=== PATIENT | female | born 1995 | race Two or more races ===

== ENCOUNTER 2020-02-02 14:26 | Emergency (ER) | payer MEDICAID ==
--- NOTE | 2020-02-02 15:25 | EDM.PDOC ---
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 Patient is 12 weeks . She states the vaginal discharge was initially pink in color and increased in amount turning to a red color. The bleeding has since decreased and is currently a light pink in color. She does continue to have mild suprapubic cramping. Patient states she had a similar occurrence around 9 weeks of but then the bleeding resolved. She had a 10week OB [employer]INO CHANGE ATTENDANT appointment with early ultrasound done in [place]. Everything was found to be normal at that time. Patient is a with a history of 1 elective . She has no chronic health problems. She takes no daily medications. She is on a daily vitamin. Denies any nausea, vomiting, or diarrhea. She has had no dysuria, frequency, or urgency. First day of last menstrual period was November [id number]. Suprapubic Pain Score (Numeric/FACES): 8 - Related Data Allergies Allergy/AdvReac Type Severity Reaction Status Date / Time No Known Allergies Allergy Verified 02/02/20 14:41 Home Meds: Home Meds . [No Known Home Meds] 02/02/20 [History] Past Medical History - Past Health History Medical/Surgical History: Denies Medical/Surgical History ED ROS GENERAL - Review of Systems Review Of Systems: Comprehensive ROS is negative, except as noted in HPI. ED EXAM - Physical Exam Exam: See Below Exam Limited By: No Limitations General Appearance: Alert, WD/WN, No Apparent Distress Respiratory/Chest: No Respiratory Distress, Lungs Clear, Normal Breath Sounds, No Accessory Muscle Use, Chest Non-Tender Cardiovascular: Normal Peripheral Pulses, Regular Rate, Rhythm, No Edema, No Gallop, No JVD, No Murmur, No Rub GI/Abdominal Exam: Normal Bowel Sounds, Soft, No Organomegaly, No Distention, No Abnormal Bruit, No Mass, Pelvis Stable, Tender (Suprapubic) (Female) Exam: Normal External Exam, Normal Speculum Exam, Vaginal Discharge (thick white. No blood noted to the cervix of vaginal canal.). No: Cervical Dilatation, Cervical Discharge, Cervical Lesions, Products of Conception, Tissue Present in Cervix/Vagina, Vaginal Bleeding, Vaginal Lesions Heart Tones: Present Heart Tones per Min: 161 Neurological: Alert, Oriented, CN II-XII Intact, Normal Cognition, Normal Gait, Normal Reflexes, No Motor/Sensory Deficits Psychiatric: Normal Affect, Normal Mood Skin Exam: Warm, Dry, Intact, Normal Color, No Rash Course - Vital Signs Last Recorded V/S: Last Vital Signs Temp 98.0 F 02/02/20 14:37 Pulse 82 02/02/20 14:37 Resp 18 02/02/20 14:37 BP 135/93 H 02/02/20 14:37 Pulse Ox 99 02/02/20 14:37 - Orders/Labs/Meds Orders: Active Orders 24 hr Category Date Time Status Pelvic Exam, Set Up [RC] ASDIRECTED Care 02/02/20 16:48 Active PATIENT RETYPE [BBK] Routine Lab 02/02/20 16:26 Ordered Labs: Laboratory Tests 02/02/20 02/02/20 02/02/20 Range/Units 15:40 15:40 15:40 WBC 9.04 (3.98-10.04) K/mm3 RBC 4.58 (3.98-5.22) M/mm3 Hgb 14.1 (11.2-15.7) gm/dl Hct 40.7 (34.1-44.9) % MCV 88.9 (79.4-94.8) fl MCH 30.8 (25.6-32.2) pg MCHC 34.6 (32.2-35.5) g/dl RDW Std Deviation 40.8 (36.4-46.3) fL Plt Count 184 (182-369) K/mm3 MPV 11.3 (9.4-12.3) fl Neut % (Auto) 71.6 H (34.0-71.1) % Lymph % (Auto) 21.1 (19.3-51.7) % [place] % (Auto) 6.4 (4.7-12.5) % Eos % (Auto) 0.4 L (0.7-5.8) Baso % (Auto) 0.2 (0.1-1.2) % Neut # (Auto) 6.46 H (1.56-6.13) K/mm3 Lymph # (Auto) 1.91 (1.18-3.74) K/mm3 [place] # (Auto) 0.58 H (0.24-0.36) K/mm3 Eos # (Auto) 0.04 (0.04-0.36) K/mm3 Baso # (Auto) 0.02 (0.01-0.08) K/mm3 Sodium 138 (136-145) mEq/L Potassium 3.7 (3.5-5.1) mEq/L Chloride 105 (98-107) mEq/L Carbon Dioxide 22 (21-32) mEq/L Anion Gap 14.7 (5-15) BUN 5 L (7-18) mg/dL Creatinine 0.6 (0.55-1.02) mg/dL Est Cr Clr Drug Dosing 127.00 mL/min Estimated GFR (MDRD) > 60 (>60) mL/min BUN/Creatinine Ratio 8.3 L (14-18) Glucose 80 (74-106) mg/dL Calcium 9.2 (8.5-10.1) mg/dL Total Bilirubin 0.4 (0.2-1.0) mg/dL AST 13 L (15-37) U/L ALT 19 (14-59) U/L Alkaline Phosphatase 51 (46-116) U/L Total Protein 7.5 (6.4-8.2) g/dl Albumin 3.7 (3.4-5.0) g/dl Globulin 3.8 gm/dL Albumin/Globulin Ratio 1.0 (1-2) HCG, Quant 01620.0 mIU/mL Urine Color (Yellow) Urine Appearance (Clear) Urine pH (5.0-8.0) Ur Specific [place] (1.005-1.030) Urine Protein (Negative) Urine Glucose (UA) (Negative) Urine Ketones (Negative) Urine Occult Blood (Negative) Urine Nitrite (Negative) Urine Bilirubin (Negative) Urine Urobilinogen (0.2-1.0) Ur Leukocyte Esterase (Negative) Urine RBC (0-5) /hpf Urine WBC (0-5) /hpf Ur Squamous Epith Cells (0-5) /hpf Urine Bacteria (FEW) /hpf Urine Mucus (FEW) /hpf Blood Type O POSITIVE 02/02/20 Range/Units 16:07 WBC (3.98-10.04) K/mm3 RBC (3.98-5.22) M/mm3 Hgb (11.2-15.7) gm/dl Hct (34.1-44.9) % MCV (79.4-94.8) fl MCH (25.6-32.2) pg MCHC (32.2-35.5) g/dl RDW Std Deviation (36.4-46.3) fL Plt Count (182-369) K/mm3 MPV (9.4-12.3) fl Neut % (Auto) (34.0-71.1) % Lymph % (Auto) (19.3-51.7) % [place] % (Auto) (4.7-12.5) % Eos % (Auto) (0.7-5.8) Baso % (Auto) (0.1-1.2) % Neut # (Auto) (1.56-6.13) K/mm3 Lymph # (Auto) (1.18-3.74) K/mm3 [place] # (Auto) (0.24-0.36) K/mm3 Eos # (Auto) (0.04-0.36) K/mm3 Baso # (Auto) (0.01-0.08) K/mm3 Sodium (136-145) mEq/L Potassium (3.5-5.1) mEq/L Chloride (98-107) mEq/L Carbon Dioxide (21-32) mEq/L Anion Gap (5-15) BUN (7-18) mg/dL Creatinine (0.55-1.02) mg/dL Est Cr Clr Drug Dosing mL/min Estimated GFR (MDRD) (>60) mL/min BUN/Creatinine Ratio (14-18) Glucose (74-106) mg/dL Calcium (8.5-10.1) mg/dL Total Bilirubin (0.2-1.0) mg/dL AST (15-37) U/L ALT (14-59) U/L Alkaline Phosphatase (46-116) U/L Total Protein (6.4-8.2) g/dl Albumin (3.4-5.0) g/dl Globulin gm/dL Albumin/Globulin Ratio (1-2) HCG, Quant mIU/mL Urine Color Yellow (Yellow) Urine Appearance Clear (Clear) Urine pH 6.0 (5.0-8.0) Ur Specific [place] 1.025 (1.005-1.030) Urine Protein Negative (Negative) Urine Glucose (UA) Negative (Negative) Urine Ketones 3+ H (Negative) Urine Occult Blood Negative (Negative) Urine Nitrite Negative (Negative) Urine Bilirubin Negative (Negative) Urine Urobilinogen 1.0 (0.2-1.0) Ur Leukocyte Esterase Negative (Negative) Urine RBC 0-5 (0-5) /hpf Urine WBC 0-5 (0-5) /hpf Ur Squamous Epith Cells 0-5 (0-5) /hpf Urine Bacteria Occasional (FEW) /hpf Urine Mucus Not seen (FEW) /hpf Blood Type - Re-Assessments/Exams Free Text/Narrative Re-Assessment/Exam: Hematology is grossly unremarkable. hCG is appropriately elevated at 89,341. Transvaginal ultrasound shows a single intrauterine gestation with an estimated gestational age of 12 weeks 2 days. There is no evidence of subchorionic hemorrhage or other complicating process. Pelvic exam shows no source of any active bleeding. There was no blood present in the vaginal canal. Cervical os is closed. There was a thick white vaginal discharge present. Wet prep was completed and showed no signs of yeast infection or bacterial vaginosis. Urinalysis was negative for any infection. Patient blood type is O+ so there is no indication for RhoGam at this time. Discussed with patient that at this time there is no signs of imminent miscarriage, however she has what is termed a threatened miscarriage. Discussed when she should return to the emergency department including worsening pelvic cramping or if she begins to bleed and is saturating more than 1 pad an hour for 2 hours. I did recommend that she call first thing Wednesday morning to schedule a follow-up appointment with one of the CASINO CHANGE ATTENDANT providers. Discharge instructions as documented. Departure - Departure Time of Disposition: 18:54 Disposition: Home, Self-Care 01 Condition: Fair Clinical Impression: Threatened - Discharge Information *PRESCRIPTION DRUG MONITORING PROGRAM REVIEWED*: No *COPY OF PRESCRIPTION DRUG MONITORING REPORT IN PATIENT ARSH: No Instructions: Threatened Miscarriage, [id number] Referrals: PCP,Not In Area [Primary Care Provider] - Forms: ED Department Discharge Additional Instructions: You were seen in the emergency department today for cramping and vaginal bleeding during . Your work-up included blood work, a vaginal swab, a pelvic exam, and a pelvic ultrasound. Your work-up was found to be normal. heart tones were present at 161. As we discussed, the fact that you are having bleeding is abnormal, however there are no signs of an impending miscarriage. At this point you have a week term a threatened miscarriage due to the fact that you have had some bleeding. I would recommend that you call to schedule an appointment with an CASINO CHANGE ATTENDANT first thing Wednesday for a follow-up. If over the weekend you experience worsening cramping or bleeding to the point where you are saturating more than 1 pad an hour for more than 2 hours, I recommend that you return to the emergency department to be reevaluated. Sepsis Event Note - Evaluation Sepsis Screening Result: No Definite Risk - Focused Exam Vital Signs: Vital Signs Temp Pulse Resp BP Pulse Ox 02/02/20 14:37 98.0 F 82 18 135/93 H 99 Date Exam was Performed: 02/02/20 Time Exam was Performed: 22:36 - My Orders Last 24 Hours: My Active Orders 02/02/20 16:26 PATIENT RETYPE [BBK] Routine 02/02/20 16:48 Pelvic Exam, Set Up [RC] ASDIRECTED - Assessment/Plan Last 24 Hours: My Active Orders 02/02/20 16:26 PATIENT RETYPE [BBK] Routine 02/02/20 16:48 Pelvic Exam, Set Up [RC] ASDIRECTED
--- NOTE | 2020-02-02 16:25 | US ---
First trimester obstetrical ultrasound: Multiple real-time images were obtained transabdominally. Comparison: No previous study for . Findings: Single and dates: Current ultrasound: CHRISTOPHER 08/14/20, gestational age 12 weeks 2 days Single intrauterine gestation is seen. Amniotic fluid volume is normal. Embryo seen. No subchorionic hemorrhage is identified. Maternal ovaries appear within normal limits. Measurements: Kaser-rump length: 5.67 cm - 12 weeks 2 days Heart rate: 149 BPM Impression: 1. Single intrauterine gestation. Dates as noted above. 2. No complicating process is identified by ultrasound at this time. Diagnostic code #1 Study was dictated in [place] Standard Time
== END 2020-02-02 19:06 | disposition home or self-care (01) ==
LOC: JD.ED 14:26
DX: O20.0 Threatened abortion (principal); Z3A.12 12 weeks gestation of pregnancy
CPT/HCPCS: 36415; 76801; 76801-26; 80053; 81001; 84702; 85025; 86900; 86901; 87210; 87808; 99282; 99284-25

== ENCOUNTER 2020-02-07 23:04 | Emergency (ER) | payer MEDICAID, OTHER ==
[2020-02-07] MEDS ORDERED: Sodium Chloride 0.9% 1,000 ML IV STA (23:42)
[2020-02-07] MEDS ORDERED: Ondansetron 4 MG/2 ML SDV IVPUSH ONE (23:42)
[2020-02-07] MEDS ORDERED: Sodium Chloride 0.9% 10 ML Syringe FLUSH PRN (23:42)
[2020-02-07] MEDS ORDERED: Acetaminophen 325 MG Tab PO ONE (23:43)
--- NOTE | 2020-02-07 23:49 | EDM.PDOC ---
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 The patient said she woke up this evening with lower abdominal and pelvic cramping. She also had nausea and she vomited. She is G2 AB1 at 13 weeks gestation with a LNMP of November 05. She denies any vaginal bleeding or discharge. She has no fever, chills, cough, congestion, runny nose, chest pain or shortness of breath. She has no diarrhea or dysuria. Onset: Sudden Duration: Hour(s): Location: Reports: Abdomen Quality: Reports: Sharp Severity: Moderate Improves with: Reports: None Worsens with: Reports: None Associated Symptoms: Reports: Nausea/Vomiting. Denies: Chest Pain, Cough, Fever /Chills, Headaches, Shortness of Breath Lower Abdomen Pain Score (Numeric/FACES): 9 - Related Data Allergies Allergy/AdvReac Type Severity Reaction Status Date / Time No Known Allergies Allergy Verified 02/07/20 23:28 Home Meds: Home Meds . [No Known Home Meds] 02/02/20 [History] Past Medical History - Past Health History Medical/Surgical History: Denies Medical/Surgical History Social & Family History - Tobacco Use Smoking Status *Q: Never Smoker - Caffeine Use Caffeine Use: Reports: None - Recreational Drug Use Recreational Drug Use: No ED ROS GENERAL - Review of Systems Review Of Systems: See Below Constitutional: Reports: No Symptoms HEENT: Reports: No Symptoms Respiratory: Reports: No Symptoms Cardiovascular: Reports: No Symptoms Endocrine: Reports: No Symptoms GI/Abdominal: Reports: Abdominal Pain, Nausea, Vomiting : Reports: No Symptoms Musculoskeletal: Reports: No Symptoms Skin: Reports: No Symptoms ED EXAM - Physical Exam Exam: See Below Exam Limited By: No Limitations General Appearance: Alert, No Apparent Distress Ears: Normal External Exam Nose: Normal Inspection Head: Atraumatic, Normocephalic Neck: Normal Inspection Respiratory/Chest: No Respiratory Distress, Lungs Clear, Normal Breath Sounds Cardiovascular: Regular Rate, Rhythm, No Edema, No Murmur GI/Abdominal Exam: Soft, No Organomegaly, No Mass, Tender (Mild tenderness to the lower abdomen. Gravid uterus above the pubic symphisis) Course - Vital Signs Last Recorded V/S: Last Vital Signs Temp 98.2 F 02/07/20 23:25 Pulse 77 02/07/20 23:25 Resp 20 02/07/20 23:25 BP 120/78 02/07/20 23:25 Pulse Ox 98 02/07/20 23:25 - Orders/Labs/Meds Orders: Active Orders 24 hr Category Date Time Status Peripheral IV Care [RC] . DIRECTED Care 02/07/20 23:43 Active Sodium Chloride 0.9% [Saline Flush] Med 02/07/20 23:42 Active 10 ml FLUSH ASDIRECTED PRN ED Antiemetic Medication Reflex [OM.PC] Stat Oth 02/07/20 23:43 Ordered Peripheral IV Insertion Adult [OM.PC] Stat Oth 02/07/20 23:42 Ordered Medication Orders Sodium Chloride (Saline Flush) 10 ml FLUSH ASDIRECTED PRN PRN Reason: Keep Vein Open Last Admin: 02/07/20 23:57 Dose: 10 ml Labs: Laboratory Tests 02/07/20 02/07/20 02/08/20 Range/Units 23:49 23:49 01:01 WBC 10.91 H (3.98-10.04) K/mm3 RBC 4.37 (3.98-5.22) M/mm3 Hgb 13.3 (11.2-15.7) gm/dl Hct 38.5 (34.1-44.9) % MCV 88.1 (79.4-94.8) fl MCH 30.4 (25.6-32.2) pg MCHC 34.5 (32.2-35.5) g/dl RDW Std Deviation 39.9 (36.4-46.3) fL Plt Count 178 L (182-369) K/mm3 MPV 11.5 (9.4-12.3) fl Neut % (Auto) 66.6 (34.0-71.1) % Lymph % (Auto) 24.5 (19.3-51.7) % [place] % (Auto) 7.9 (4.7-12.5) % Eos % (Auto) 0.5 L (0.7-5.8) Baso % (Auto) 0.2 (0.1-1.2) % Neut # (Auto) 7.28 H (1.56-6.13) K/mm3 Lymph # (Auto) 2.67 (1.18-3.74) K/mm3 [place] # (Auto) 0.86 H (0.24-0.36) K/mm3 Eos # (Auto) 0.05 (0.04-0.36) K/mm3 Baso # (Auto) 0.02 (0.01-0.08) K/mm3 Manual Slide Review Normal smear Sodium 139 (136-145) mEq/L Potassium 3.6 (3.5-5.1) mEq/L Chloride 107 (98-107) mEq/L Carbon Dioxide 21 (21-32) mEq/L Anion Gap 14.6 (5-15) BUN 6 L (7-18) mg/dL Creatinine 0.5 L (0.55-1.02) mg/dL Est Cr Clr Drug Dosing 152.40 mL/min Estimated GFR (MDRD) > 60 (>60) mL/min BUN/Creatinine Ratio 12.0 L (14-18) Glucose 92 (74-106) mg/dL Calcium 8.5 (8.5-10.1) mg/dL Total Bilirubin 0.3 (0.2-1.0) mg/dL AST 11 L (15-37) U/L ALT 17 (14-59) U/L Alkaline Phosphatase 52 (46-116) U/L Total Protein 6.9 (6.4-8.2) g/dl Albumin 3.4 (3.4-5.0) g/dl Globulin 3.5 gm/dL Albumin/Globulin Ratio 1.0 (1-2) Lipase 103 (73-393) U/L Urine Color Yellow (Yellow) Urine Appearance Slt cloudy H (Clear) Urine pH 8.0 (5.0-8.0) Ur Specific [place] 1.020 (1.005-1.030) Urine Protein Negative (Negative) Urine Glucose (UA) Negative (Negative) Urine Ketones Trace H (Negative) Urine Occult Blood Negative (Negative) Urine Nitrite Negative (Negative) Urine Bilirubin Negative (Negative) Urine Urobilinogen 1.0 (0.2-1.0) Ur Leukocyte Esterase Negative (Negative) Urine RBC 0-5 (0-5) /hpf Urine WBC Not seen (0-5) /hpf Ur Squamous Epith Cells 0-5 (0-5) /hpf Amorphous Sediment Moderate H (NOT SEEN) /hpf Urine Bacteria Rare (FEW) /hpf Urine Mucus Rare (FEW) /hpf Meds: Medications Generic Name Dose Route Start Last Admin Trade Name Marta PRN Reason Stop Dose Admin Sodium Chloride 10 ml 02/07/20 23:42 02/07/20 23:57 Saline Flush FLUSH 10 ml ASDIRECTED PRN Administration Keep Vein Open Discontinued Medications Generic Name Dose Route Start Last Admin Trade Name Freq PRN Reason Stop Dose Admin Acetaminophen 975 mg 02/07/20 23:43 02/07/20 23:55 Tylenol PO 02/07/20 23:44 975 mg NOW ONE Administration Sodium Chloride 1,000 mls @ 1,000 mls/hr 02/07/20 23:42 02/07/20 23:55 Normal Saline IV 02/08/20 00:41 1,000 mls/hr .BOLUS STA Administration Ondansetron HCl 4 mg 02/07/20 23:42 02/07/20 23:55 Zofran IVPUSH 02/07/20 23:43 4 mg ONETIME ONE Administration - Re-Assessments/Exams Free Text/Narrative Re-Assessment/Exam: 02/07/20 23:48 I ordered an IV NS 1L bolus, zofran 4mg IV, tylenol 975mg PO, labs and UA. I did a bedside US and the baby was moving and heart rate was 160s. Nothing abnormal was seen. 02/08/20 01:35 Her WBC was up slightly at 10.91. Her CMP looks good. Her lipase is normal. Her UA shows no UTI. She feels better. I will discharge her home. Departure - Departure Time of Disposition: 01:40 Disposition: Home, Self-Care 01 Condition: Good Clinical Impression: Qualifiers: Weeks of gestation: 13 weeks Qualified Code(s): Z3A.13 - 13 weeks gestation of Abdominal pain Qualifiers: Abdominal location: lower abdomen, unspecified Qualified Code(s): R10.30 - Lower abdominal pain, unspecified - Discharge Information *PRESCRIPTION DRUG MONITORING PROGRAM REVIEWED*: Not Applicable *COPY OF PRESCRIPTION DRUG MONITORING REPORT IN PATIENT ARSH: Not Applicable Referrals: PCP,None [Primary Care Provider] - Francisco Chi MD [Physician] - 1 Week Forms: ED Department Discharge Additional Instructions: Go home and rest. Drink plenty of water. Take tylenol for the pain. Follow up within a week. Please return if you are worse. Sepsis Event Note - Evaluation Sepsis Screening Result: No Definite Risk - Focused Exam Vital Signs: Vital Signs Temp Pulse Resp BP Pulse Ox 02/07/20 23:25 98.2 F 77 20 120/78 98 Date Exam was Performed: 02/08/20 Time Exam was Performed: 01:35 - My Orders Last 24 Hours: My Active Orders 02/07/20 23:42 Sodium Chloride 0.9% [Saline Flush] 10 ml FLUSH ASDIRECTED PRN Peripheral IV Insertion Adult [OM.PC] Stat 02/07/20 23:43 Peripheral IV Care [RC] . DIRECTED ED Antiemetic Medication Reflex [OM.PC] Stat - Assessment/Plan Last 24 Hours: My Active Orders 02/07/20 23:42 Sodium Chloride 0.9% [Saline Flush] 10 ml FLUSH ASDIRECTED PRN Peripheral IV Insertion Adult [OM.PC] Stat 02/07/20 23:43 Peripheral IV Care [RC] . DIRECTED ED Antiemetic Medication Reflex [OM.PC] Stat
== END 2020-02-08 01:45 | disposition home or self-care (01) ==
LOC: JD.ED 23:04
DX: O99.89 Other specified diseases and conditions complicating pregnancy, childbirth and the puerperium (principal); R10.30 Lower abdominal pain, unspecified; Z3A.13 13 weeks gestation of pregnancy
CPT/HCPCS: 36415; 80053; 81001; 83690; 85025; 96361; 96374; 99284; A9270; J2405; J7030; 99283